=== PATIENT | female | born 1990 | race Caucasian/White ===

== ENCOUNTER → 2021-06-14 | Outpatient (CLI) | payer OTHER | LOC: M LABSMTC 11:01 | PROVIDERS: ATTEND Anesthesiology | DX: Z01.818 Encounter for other preprocedural examination (principal); Z11.52 Encounter for screening for COVID-19 ==

== ENCOUNTER 2021-06-18 09:07 | Day surgery (SDC) | payer OTHER ==
[~2021-06-18] VITALS: Ht 165.1 cm; Wt 105.7 kg
[~2021-06-18 09:07] MED LIST: LR 1,000 ML IV ONE
--- OUTSIDE RECORDS SUMMARY | 2021-06-18 09:10 | CCD ---
Author Author [facility] Organization [facility] Address Unknown Phone Unavailable Care Team Providers Care Channeling Machine Operator Name Role Phone Valenzuela Jessie Gina TOPPER PRESS OPERATOR Unavailable Unavailable Valenzuela, Jessie Gina TOPPER PRESS OPERATOR Unavailable Unavailable Valenzuela, Jessie Gina TOPPER PRESS OPERATOR Unavailable Unavailable Valenzuela, Jessie Gina TOPPER PRESS OPERATOR Unavailable Unavailable Valenzuela, Jessie Gina TOPPER PRESS OPERATOR Unavailable Unavailable Valenzuela, Jessie Gina TOPPER PRESS OPERATOR Unavailable Unavailable Valenzuela, Jessie Gina TOPPER PRESS OPERATOR Unavailable Unavailable Valenzuela, Jessie Gina TOPPER PRESS OPERATOR Unavailable Unavailable Valenzuela, Jessie Gina TOPPER PRESS OPERATOR Unavailable Unavailable Valenzuela, Jessie Gina TOPPER PRESS OPERATOR Unavailable Unavailable Valenzuela, Jessie Gina TOPPER PRESS OPERATOR Unavailable Unavailable Valenzuela, Jessie Gina TOPPER PRESS OPERATOR Unavailable Unavailable Valenzuela, Jessie Gina TOPPER PRESS OPERATOR Unavailable Unavailable Valenzuela, Jessie Gina TOPPER PRESS OPERATOR Unavailable Unavailable Feola, T Shawna PA Unavailable Unavailable Feola, T Shawna PA Unavailable Unavailable Feola, T Shawna PA Unavailable Unavailable Feola, T Shawna PA Unavailable Unavailable Feola, T Shawna PA Unavailable Unavailable Feola, T Shawna PA Unavailable Unavailable Feola, T Shawna PA Unavailable Unavailable Feola, T Shawna PA Unavailable Unavailable Feola, T Shawna PA Unavailable Unavailable Feola, T Shawna PA Unavailable Unavailable Feola, T Shawna PA Unavailable Unavailable Feola, T Shawna PA Unavailable Unavailable Feola, T Shawna PA Unavailable Unavailable Feola, T Shawna PA Unavailable Unavailable Feola, T Shawna PA Unavailable Unavailable Feola, T Shawna PA Unavailable Unavailable Feola, T Shawna PA Unavailable Unavailable Feola, T Shawna PA Unavailable Unavailable Feola, T Shawna PA Unavailable Unavailable Feola, T Shawna PA Unavailable Unavailable Feola, T Shawna PA Unavailable Unavailable Feola, T Shawna PA Unavailable Unavailable Feola, T Shawna PA Unavailable Unavailable Feola, T Shawna PA Unavailable Unavailable Feola, T Shawna PA Unavailable Unavailable Feola, T Shawna PA Unavailable Unavailable Feola, T Shawna PA Unavailable Unavailable Feola, T Shawna PA Unavailable Unavailable Feola, T Shawna PA Unavailable Unavailable Feola, T Shawna PA Unavailable Unavailable Feola, T Shawna PA Unavailable Unavailable Feola, T Shawna PA Unavailable Unavailable Feola, T Shawna PA Unavailable Unavailable Feola, T Shawna PA Unavailable Unavailable Feola, T Shawna PA Unavailable Unavailable Feola, T Shawna PA Unavailable Unavailable Feola, T Shawna PA Unavailable Unavailable Feola, T Shawna PA Unavailable Unavailable Feola, T Shawna PA Unavailable Unavailable Feola, T Shawna PA Unavailable Unavailable Feola, T Shawna PA Unavailable Unavailable Green DUMP TRUCK DRIVER DUMP TRUCK DRIVER, Meredith Unavailable Unavailable Green DUMP TRUCK DRIVER DUMP TRUCK DRIVER, Meredith Unavailable Unavailable Green DUMP TRUCK DRIVER DUMP TRUCK DRIVER, Meredith Unavailable Unavailable Green DUMP TRUCK DRIVER DUMP TRUCK DRIVER, Meredith Unavailable Unavailable Green DUMP TRUCK DRIVER DUMP TRUCK DRIVER, Meredith Unavailable Unavailable Re-disclosure Warning The records that you are about to access may contain information from federally-assisted alcohol or drug abuse programs. If such information is present, then the following federally mandated warning applies: This information has been disclosed to you from records protected by federal confidentiality rules (42 CFR part 2). The federal rules prohibit you from making any further disclosure of this information unless further disclosure is expressly permitted by the written consent of the person to whom it pertains or as otherwise permitted by 42 CFR part 2. A general authorization for the release of medical or other information is NOT sufficient for this purpose. The Federal rules restrict any use of the information to criminally investigate or prosecute any alcohol or drug abuse patient.The records that you are about to access may contain highly sensitive health information, the redisclosure of which is protected by Article 27-F of the [facility] Public Health law. If you continue you may have access to information: Regarding HIV / AIDS; Provided by facilities licensed or operated by the [facility] Office of Mental Health; or Provided by the [facility] Office for People With Developmental Disabilities. If such information is present, then the following [facility] mandated warning applies: This information has been disclosed to you from confidential records which are protected by state law. State law prohibits you from making any further disclosure of this information without the specific written consent of the person to whom it pertains, or as otherwise permitted by law. Any unauthorized further disclosure in violation of state law may result in a fine or senior living sentence or both. A general authorization for the release of medical or other information is NOT sufficient authorization for further disc losure. Family History Family Member Name Family Member Gender Family Member Status Date o f Status Description Data Source(s) Unknown Male Diagnosis 09/02/2019 12:00:00 AM EST [facility] ([facility]) Encounters Encounter Providers Location Date Indications Data Source(s ) Unknown [address] [facility] [address] 05/28/2021 12:00:00 AM EDT eCW1 ([facility]) [place] [address] [facility] [facility] [place] [address] 05/18/2021 12:00:00 AM EDT eCW1 ([facility]) OFFICE VISIT, ESTOutpatient Attender: Meredith Ortiz NP DUMP TRUCK DRIVER [facility] 01/20/2021 02:00:00 PM EDT - 01/20/2021 02:00:00 PM EDT Encntr screen for infections w sexl mode of transmissOther sex counselingHuman immunodeficiency virus [HIV] counselingEncounter for surveillance of vagnl ringEncounter for initial prescription of injectable contracepEncounter for oth general cnsl and advice on contraceptionEncounter for test, result negative [facility] ([facility]) Encntr screen for infections w sexl mode of transmiss Other sex counseling Human immunodeficiency virus [HIV] couns eling Encounter for surveillance of vagnl ring Encounter for initial prescription of in jectable contracep Encounter for oth general cnsl and advic e on contraception Encounter for test, result neg ative Outpatient Attender: Shawna CAMPBELL 021 05:17:29 PM EDT - 12/03/2020 05:56:49 PM EDT DocuTap ([facility] ) OutpatientOFFICE VISIT, EST Attender: Meredith Ortiz DUMP TRUCK DRIVER DUMP TRUCK DRIVER [facility] 10/15/2020 12:00:00 PM EST - 10/15/2020 12:00:00 PM EST Other sex counselingHuman immunodeficiency virus [HIV] counselingEncounter for initial prescription of vagnl ringEncounter for oth general cnsl and advice on contraception [facility] ([facility]) Other sex counseling Human immunodeficiency virus [HIV] couns eling Encounter for initial prescription of va gnl ring Encounter for oth general cnsl and advic e on contraception Attender: Gina Valenzuela TOPPER PRESS OPERATOR [facility] 05/27/2020 03:50:00 PM EDT - 05/27/2020 03:50:00 PM EDT Encounter for surveillance of injectable contraceptive [facility] ([facility]) Encounter for surveillance of injectable contraceptive Medications Medication Brand Name Start Date Product Form Dose Route Admi nistrative Instructions Pharmacy Instructions Status Indications Reaction Description Data Source(s) medroxyprogesterone acetate 150 MG/ML In jectable Suspension medroxyprogesterone 150 mg/mL intramuscular suspension medroxyprogesterone 150 mg/mL intramuscu lar suspension 01/20/2021 12:00:00 AM EDT active IM every 10-13 weeks [facility] ([facility]) 21 DAY Ethinyl Estradiol 0.465187 MG/HR / Etonogestrel 0.005 MG/HR Vaginal Ring [NuvaRing] NuvaRing 0.12 mg-0.015 mg/24 hr vaginal NuvaRing 0.12 mg-0.015 mg/24 hr vaginal 10/15/2020 12:00:00 AM EST active 21 DAY ethinyl estradiol 0.681348 MG/HR / etonogestrel 0.005 MG/HR Vaginal System [NuvaRing] NextGen ([facility]) medroxyprogesterone acetate 150 MG/ML In jectable Suspension medroxyprogesterone 150 mg/mL intramuscular suspension medroxyprogesterone 150 mg/mL intramuscu lar suspension 12/25/2019 12:00:00 AM EDT complet ed IM every 10-13 weeks Next[facility] ([facility]) Insurance Providers Payer name Policy type / Coverage type Policy ID Covered democrat ID Covered democrat's relationship to dhillon Policy Dhillon Plan Information [facility] [id number] [id number] self [phone] [facility] [phone] [id number] self [id number] [facility] Commercial [employer] [id number] Self [id number] [facility] [id number] SP [id number] [facility] [id number] SP [id number] ANSI-Medicaid [id number] PENDING SALE TO [facility] [id number] SP [id number] Problems, Conditions, and Diagnoses No Information Surgeries/Procedures Procedure Description Date Indications Data Source(s) NURSE ONLY INJ. RN/BIOMEDICAL ENGINEERING PROFESSOR Only 01/20/2021 1 2:00:00 AM EDT - 01/20/2021 12:00:00 AM EDT [facility] ([facility]) Depo/Medroxyprogesterone Inj. 150 Mg Nurse/CA 01/20/2021 12:00:00 AM EDT - 01/20/2021 12:00:00 AM EDT [facility] ([facility]) CVR Actuary Clerk.Svc. STI / H 01/20/2021 12:00:00 AM EDT - 01/20/2021 12:00:00 AM EDT [facility] ([facility]) CVR Actuary Clerk.Svc. Contraceptive 01/20/2021 12 :00:00 AM EDT - 01/20/2021 12:00:00 AM EDT [facility] ([facility]) CVR Med.Svc. Height/Weight 01/20/2021 12 :00:00 AM EDT - 01/20/2021 12:00:00 AM EDT [facility] ([facility]) CVR Blood Pressure 01/20/2021 12:00:00 AM EDT - 2020 12:00:00 AM EDT [facility] ([facility]) N.GONORRHOEAE, Pharyngeal 01/20/2021 12: 00:00 AM EDT - 01/20/2021 12:00:00 AM EDT [facility] ([facility]) CHYLMD TRACH, Pharyngeal 01/20/2021 12:0 0:00 AM EDT - 01/20/2021 12:00:00 AM EDT [facility] ([facility]) HCS Without Test 01/20/2021 12:00:00 AM EDT - 01/21/20 21 12:00:00 AM EDT [facility] ([facility]) N.GONORRHOEAE, URINE 01/20/2021 12:00:00 AM EDT - 01/20/2021 12:00:00 AM EDT [facility] ([facility]) CHYLMD TRACH, URINE 01/20/2021 12:00:00 AM EDT - 01/20 12:00:00 AM EDT [facility] ([facility]) OFFICE VISIT, EST 01/20/2021 12:00:00 AM EDT - 021 12:00:00 AM EDT [facility] ([facility]) URINE TEST 01/20/2021 12:00:00 AM EDT - 01/20/2021 12:00:00 AM EDT [facility] ([facility]) CVR Actuary Clerk.Svc. STI / H 10/15/2020 12:00:00 AM EST - 10/15/2020 12:00:00 AM EST [facility] ([facility]) CVR Actuary Clerk.Svc. Other 10/15/2020 12:00:00 AM EST - 2020 12:00:00 AM EST [facility] ([facility]) CVR Actuary Clerk.Svc. Contraceptive 10/15/2020 12 :00:00 AM EST - 10/15/2020 12:00:00 AM EST [facility] ([facility]) CVR Med.Svc. Height/Weight 10/15/2020 12 :00:00 AM EST - 10/15/2020 12:00:00 AM EST [facility] ([facility]) CVR Blood Pressure 10/15/2020 12:00:00 AM EST - 2020 12:00:00 AM EST [facility] ([facility]) HCS Without Test 10/15/2020 12:00:00 AM EST - 10/16/19 12:00:00 AM EST [facility] ([facility]) OFFICE VISIT, EST 10/15/2020 12:00:00 AM EST - 021 12:00:00 AM EST [facility] ([facility]) CVR Actuary Clerk.Svc. Other 05/27/2020 12:00:00 AM EDT - 2019 12:00:00 AM EDT [facility] ([facility]) CVR Actuary Clerk.Svc. Nutrition 05/27/2020 12:00: 00 AM EDT - 05/27/2020 12:00:00 AM EDT [facility] ([facility]) CVR Actuary Clerk.Svc. Contraceptive 05/27/2020 12 :00:00 AM EDT - 05/27/2020 12:00:00 AM EDT [facility] ([facility]) CVR Med.Svc. Height/Weight 05/27/2020 12 :00:00 AM EDT - 05/27/2020 12:00:00 AM EDT [facility] ([facility]) CVR Blood Pressure 05/27/2020 12:00:00 AM EDT - 2019 12:00:00 AM EDT [facility] ([facility]) Injection Or Lab Only Visit Est 05/27/20 12:00:00 AM EDT - 05/27/2020 12:00:00 AM EDT [facility] ([facility]) NURSE ONLY DEPO INJ. RN/BIOMEDICAL ENGINEERING PROFESSOR Only 020 12:00:00 AM EDT - 05/27/2020 12:00:00 AM EDT [facility] ([facility]) Depo/Medroxyprogesterone Inj. 150 Mg Nurse/CA 05/27/2020 12:00:00 AM EDT - 05/27/2020 12:00:00 AM EDT [facility] ([facility]) CVR BC Ending Method HORM.INJ. 3 MOS 12:00:00 AM EDT - 05/27/2020 12:00:00 AM EDT [facility] ([facility]) Results ID Date Data Source [id number] 01/20/2021 02:11:10 PM EDT [facility] ([facility]) Name Value Range Interpretation Code Description Data Marla rce(s) Supporting Document(s) NegativeLot: [id number]: 07/06/2022 High Sensitivity Urine Test [facility]) ID Date Data Source [id number] 01/20/2021 12:00:00 AM EDT [facility] ([facility]) Name Value Range Interpretation Code Description Data Marla rce(s) Supporting Document(s) Negative Normal (applies to non-numeric resul ts) Urine CT/GC Combo - GC [facility] ([facility]) : No Performed by: CDD ([id number]) ID Date Data Source [id number] 01/20/2021 12:00:00 AM EDT [facility] ([facility]) Name Value Range Interpretation Code Description Data Marla rce(s) Supporting Document(s) Negative Normal (applies to non-numeric resul ts) Urine CT/GC Combo - CT [facility] ([facility]) ID Date Data Source [id number] 12/05/2020 08:20:00 PM EDT [facility] Name Value Range Interpretation Code Description Data Marla rce(s) Supporting Document(s) COVID-19 RT-PCR NASAL SWAB Not Detected Not Detected [facility] A not detected (negative) test result fo r this test means that SARS-CoV-2 RNA was not present in the specimen above the limit ofdetection. Laboratory test results should always be considered in thecontext of clinical observations and epidemiological data in making afinal diagnosis and patient management decisions. Results will bereported to government agencies as required.This test has received Emergency Use Authorization (EUA). We will continue to follow federal and state requirements for COVID-19 reporting. This test has been authorized only for the detection of RNAfrom SARS-CoV-2 virus and diagnosis of SARS-CoV-2 virus infection, notfor any other viruses or pathogens. This test is only authorized for the duration of the declaration that circumstances exist justifying the authorization of the emergency use of in vitro diagnostic tests for detection of SARS-CoV-2 virus and/or diagnosis of SARS-CoV-2 virusinfection under section 564(b)(1) of the Act, 21 U.S.C. section 360bbb-3(b)(1), unless the authorization is terminated or revoked sooner. We will continue to follow federal and state requirements for both notification of results and any confirmatory testing that is required by another agency. This test was developed and its performance characteristics determined by [employer] and verified at [employer]. It has not been cleared or approved by the U.S. Food and Drug Administration for diagnostic use. This test has been authorized by FDA under an EUA for use by authorized laboratories. Results should be used in conjunction with clinical findings, and should not form the sole basis for a diagnosis or treatment decision. Methods: SARS-CoV-2 Multiplex RT-PCR Assay ID Date Data Source [id number] 12/03/2020 05:30:00 PM EDT [facility] Name Value Range Interpretation Code Description Data Marla rce(s) Supporting Document(s) SARS-CoV-2 (COVID-19) N gene [Presence] in Respiratory specimen by MELLISSA with probe detection NEGATIVE [facility] This lab was ordered by Jamar Cueva and reported by [employer]. ID Date Data Source [id number] 12/03/2020 12:00:00 AM EDT [facility] Name Value Range Interpretation Code Description Data Marla rce(s) Supporting Document(s) Carestart Rapid COVID Antigen Test Negative [facility] This lab was reported by Jamar [facility]. Procedure Social History Code Duration Value Status Description Data Source(s ) Smoking 05/18/2021 12:00:00 AM EDT Former Smoker completed Former Smoker eCW1 ([facility]) Smoking 05/18/2021 12:00:00 AM EDT Former Smoker completed Former Smoker eCW1 ([facility]) 01/20/2021 12:00:00 AM EDT Cigarette smoker completed Cig arette smoker [facility] ([facility]) Smoking 01/20/2021 12:00:00 AM EDT Current every day smoker co mpleted Current every day smoker [facility] Vital Signs ID Date Data Source UNK Name Value Range Interpretation Code Description Data Source(s) Body weight 230.4 [lb_av] 230.4 [lb_av] [facility]CW1 ([facility]) Body height 65 [in_i] 65 [in_i] [facility] ([facility]) Body mass index (BMI) [Ratio] 38.34 kg/m2 38.34 kg/m2 eCW1 ([facility]) Systolic blood pressure 128 mm[Hg] 128 mm[Hg] e CW1 ([facility]) Diastolic blood pressure 80 mm[Hg] 80 mm[Hg] eCW1 ([facility]) Body height 165.10 cm 165.10 cm [facility] ([facility]) Body weight 97.069 kg 97.069 kg [facility] ([facility]) Systolic blood pressure 126 mm[Hg] 126 mm[Hg] N [facility]Gen ([facility]) Diastolic blood pressure 82 mm[Hg] 82 mm[Hg] [facility] ([facility]) Body mass index (BMI) [Ratio] 35.61 kg/m2 Overweight 35.61 kg/m2 Next[facility] ([facility]) Systolic blood pressure 123 mm[Hg] 123 mm[Hg] N extGen ([facility]) Diastolic blood pressure 80 mm[Hg] 80 mm[Hg] [facility] ([facility]) Body height 165.10 cm 165.10 cm [facility] ([facility]) Body weight 98.430 kg 98.430 kg [facility] ([facility]) Body mass index (BMI) [Ratio] 36.11 kg/m2 Overweight 36.11 kg/m2 Next[facility] ([facility]) Body height 165.10 cm 165.10 cm [facility] ([facility]) Body weight 96.162 kg 96.162 kg [facility] ([facility]) Systolic blood pressure 124 mm[Hg] 124 mm[Hg] N extGen ([facility]) Diastolic blood pressure 80 mm[Hg] 80 mm[Hg] [facility] ([facility]) Body mass index (BMI) [Ratio] 35.28 kg/m2 Overweight 35.28 kg/m2 [facility] ([facility]) Patient Treatment Plan of Care Planned Activity Planned Date Details Description Data Source (s) medroxyprogesterone acetate 150 MG/ML Injectable Suspe nsion 01/20/2021 12:00:00 AM EDT [facility] 21 DAY Ethinyl Estradiol 0.708002 MG/HR / Etonogestrel 0.005 MG/HR Vaginal Ring [NuvaRing] 10/15/2020 12:00:00 AM EST [facility] ([facility]) medroxyprogesterone acetate 150 MG/ML Injectable Suspe nsion 12/25/2019 12:00:00 AM EDT [facility] ([facility])
--- OUTSIDE RECORDS SUMMARY | 2021-06-18 09:10 | CCD ---
Author Author [facility] Organization [facility] Address Unknown Phone Unavailable Care Team Providers Care Payment Poster Name Role Phone Doyle Kiran Unavailable PROBLEMS No Information ALLERGIES No Known Allergies ENCOUNTERS from 1989 to 2021-05-31 Encounter Location Date Provider Diagnosis [facility] [address] [place] [address] [place] [address] May, Doyle Kiran Encounter for annual routine gynecological examination Z01.419 IMMUNIZATIONS No Information SOCIAL HISTORY Tobacco Use: Social History Observation Description Date Details (start date - stop date) Former Smoker Sex Assigned At : Social History Observation Description Sex Assigned At Unknown Language: Question Answer Notes Languages spoken: Polish Alcohol Screening: Question Answer Notes Did you have a drink containing alcohol in the past year? Ye s Points 2 Interpretation Negative How often did you have six or more drinks on one occas ion in the past year? Never (0 points) How many drinks did you have on a typica l day when you were drinking in the past year? 1 or 2 (0 points) How often did you have a drink containing alcohol in t he past year? Two to four times a month (2 points) Tobacco Use: Question Answer Notes Are you a: former smoker Smoking Cessation Information Given 05/18/2021 How long has it been since you last smoked? 3-6 months REASON FOR REFERRAL No Information VITAL SIGNS Weight 230.4 lbs May, Height 65 in May, BMI 38.34 kg/m2 May, Blood pressure systolic 128 mm Hg May, Blood pressure diastolic 80 mm Hg May, MEDICATIONS Medication SIG (Take, Route, Frequency, Duration) Notes Start Da te End Date Status Depo-Provera 400 MG/ML as directed Intramuscular Not-Taking PROCEDURES No Information RESULTS No Results REASON FOR VISIT LOOKING TO GET ESTABLISHED AND DISUSS TBL MEDICAL (GENERAL) HISTORY Type Description Date Surgical History wisdom teeth Surgical History tubes in ears as child Surgical History right breast cyst removed Hospitalization History Childbirth Goals Section No Information Health Concerns No Information MEDICAL EQUIPMENT No Information MENTAL STATUS No Information FUNCTIONAL STATUS No Information ASSESSMENTS Encounter Date Diagnosis Assessment Notes Treatment Notes Treatm ent Clinical Notes May, Encounter for annual routine gynecological examination (ICD-10 - Z01.419) PLAN OF TREATMENT Treatment Notes Test Name Order Date PAP REQUEST FOR SERVICE 2021-05-18 Next Appt Details Provider Name:Doyle Kiran, 2021-07-14 09:00:00 AM, [address], , [place], [address], Insurance Providers Payer Name Payer Address Payer Phone Insured Name Patient Relati onship to Insured Coverage Start Date Coverage End Date [facility] [address] [address] [facility] [id number] [place] LOMBARDI self
--- OUTSIDE RECORDS SUMMARY | 2021-06-18 09:10 | CCD ---
Author Author [facility] [facility] Organization [facility] [facility] Address Unknown Phone Unavailable Care Team Providers Care Hospitality Job Titles Name Role Phone Doyle Kiran Unavailable PROBLEMS No Information ALLERGIES No Known Allergies ENCOUNTERS from 1990 to 2021-05-28 Encounter Location Date Provider Diagnosis [facility] [address] [place] [address] [place] [address] May, Doyle Kiran IMMUNIZATIONS No Information SOCIAL HISTORY Tobacco Use: Social History Observation Description Date Details (start date - stop date) Former Smoker Sex Assigned At : Social History Observation Description Sex Assigned At Unknown Language: Question Answer Notes Languages spoken: Romanian Alcohol Screening: Question Answer Notes Did you [...] REASON FOR REFERRAL No Information VITAL SIGNS No information MEDICATIONS Medication SIG (Take, Route, Frequency, Duration) Notes Start Da te End Date Status Depo-Provera 400 MG/ML as directed Intramuscular Not-Taking PROCEDURES No Information RESULTS No Results REASON FOR VISIT 06/18/21 SURG AUTH MEDICAL (GENERAL) HISTORY Type Description Date Surgical History wisdom teeth Surgical History tubes in ears as child Surgical History right breast cyst removed Hospitalization History Childbirth Goals Section No Information Health Concerns No Information MEDICAL EQUIPMENT No Information MENTAL STATUS No Information FUNCTIONAL STATUS No Information ASSESSMENTS No Information PLAN OF TREATMENT Next Appt Details Provider Name:Doyle Kiran, 2021-07-14 09:00:00 AM, [address] [facility], , [place], [address], Insurance Providers Payer Name Payer Address Payer Phone Insured Name Patient Relati onship to Insured Coverage Start Date Coverage End Date [facility] [address] [address] [facility] [phone] TORSTEN LOMBARDI self
[2021-06-18 09:41] LABS: HEMATOCRIT 40.2 % (36.0-47.0); HEMOGLOBIN 13.8 g/dl (12.0-15.5); MEAN CORPUSCULAR HEMOGLOBIN 30.3 pg (27.0-33.0); MEAN CORPUSCULAR HGB CONC 34.3 g/dl (32.0-36.5); MEAN CORPUSCULAR VOLUME 88.4 fl (80.0-96.0); PLATELET COUNT, AUTOMATED 212 10^3/uL (150-450); RED BLOOD COUNT 4.55 10^6/uL (4.00-5.40); WHITE BLOOD COUNT 6.6 10^3/uL (4.0-10.0)
[2021-06-18] MEDS ORDERED: BUPIVACAINE HCL 0.25% 10ML VIAL As Ordered ONE (10:06)
--- NOTE | 2021-06-18 10:18 | ROOPDOC ---
[facility] Report Of Operation Report of Operation DATE OF PROCEDURE: 06/18/21 PREPROCEDURE DIAGNOSES: Undesired fertility. POSTPROCEDURE DIAGNOSES: Same. PROCEDURE PERFORMED: Laparoscopic left salpingectomy, right salpingo- oophorectomy. SURGEON: Janeth Perry MD ANESTHESIA: GETA. ESTIMATED BLOOD LOSS: Approximately 20 mL. COMPLICATIONS: none. FINDINGS: Normal uterus, left ovary and fallopian tube. Right fallopian tube densely adherent to IP ligament and right ovary. Right ovary multicystic. Normal upper abdomen. SPECIMENS REMOVED: Bilateral fallopian tubes, right ovary PROCEDURE NOTE: The patient was taken to the operating room where general endotracheal anesthesia was induced. She was prepped and draped in a sterile fashion in the dorsal lithotomy position. A sponge stick was placed in the vagina to use as a manipulator. A periumbilical incision was made with a scalpel. A Veress needle was placed through this incision while tenting up on the skin of the abdomen. An intra-abdominal location the Veress needle was assessed with the use of a saline filled syringe. A pneumoperitoneum was created. The Veress needle was removed. A 5 mm trocar using [employer] was inserted through this incision. A 5 and 8 mm suprapubic port were placed under direct visualization. A grasping instrument was used to elevate each fallopian tube. A LigaSure device was used to coagulate and incise broad ligament attachments to the fallopian tube. Both tubes were excised near their origin. Both tubes were removed through the suprapubic port. After dissection of the right fallopian tube there was noted to be bleeding from the hilum of the right IP ligament. Coagulation was attempted. Bleeding was persistent in a slow fashion. It was deemed safer to remove the right ovary than to leave the ovary risk further bleeding. Right IP ligament was coagulated and incised. The utero- ovarian ligament on the right was coagulated incised. The right ovary was placed in Endo Catch bag and removed through the umbilical port. The pneumoperitoneum was released. All instruments were removed. The skin was closed with 4-0 Monocryl subcuticular sutures. Sponge instrument and needle counts were correct. The patient went to the recovery room in stable condition. JANETH PERRY MD Jun 18, 2021 10:18
[2021-06-18] MEDS ORDERED: IBUP-1022 PO (11:20)
[2021-06-18] MEDS ORDERED: OXYC1TAB23 PO (11:21)
[2021-06-18] MEDS ORDERED: KETOROLAC 60MG 2ML VIAL As Ordered ONE (11:49)
[2021-06-18] MEDS ORDERED: ROCURONIUM BROMIDE 50 MG/5 ML VIAL As Ordered ONE (11:49)
[2021-06-18] MEDS ORDERED: propofoL 200 MG/20 ML VIAL As Ordered ONE (11:49)
[2021-06-18] MEDS ORDERED: dexameTHASONE 4 MG/ML 1ML VIAL (J1100 PER 1MG) As Ordered ONE (11:49)
[2021-06-18] MEDS ORDERED: SUGAMMADEX SODIUM 500 MG/5 ML VIAL (BRIDION) As Ordered ONE (11:49)
[2021-06-18] MEDS ORDERED: MIDAZOLAM INJ 2MG/2ML VIAL (J2250 PER 1MG) As Ordered ONE (11:49)
[2021-06-18] MEDS ORDERED: LIDOCAINE 2% 100MG/5ML SDV (FOR ANES.) As Ordered ONE (11:49)
[2021-06-18] MEDS ORDERED: ONDANSETRON 4MG/2ML VIAL As Ordered ONE (11:49)
[2021-06-18] MEDS ORDERED: HYDROmorphone HCL 2 MG/ML 1ML VIAL As Ordered ONE (11:49)
[2021-06-18] MEDS ORDERED: fentaNYL 100 MCG/2 ML INJECTION (J3010) As Ordered ONE (11:49)
[2021-06-18] MEDS ORDERED: ACETAMINOPHEN 1000MG 100ML IV BTL (OFIRMEV) (J0131 PER 10MG) As Ordered ONE (11:56)
[2021-06-18] MEDS ORDERED: HYDROMORPHONE HCL 0.5 MG/ 0.5 ML SYRINGE (J1170 PER 1) IV PRN (12:40)
[2021-06-18] MEDS ORDERED: METOCLOPRAMIDE INJ 10MG/2ML VIAL (J2765 PER 1) IV PRN (12:40)
[2021-06-18] MEDS ORDERED: oxyCODONE 5MG TAB PO PRN (12:40)
[2021-06-18] MEDS ORDERED: LR 1,000 ML IV SCH ×2 (12:40)
[2021-06-18] MEDS ORDERED: fentaNYL 100 MCG/2 ML INJECTION (J3010) IV PRN (12:40)
[2021-06-18] MEDS ORDERED: ONDANSETRON 4MG/2ML VIAL IV PRN (12:40)
[2021-06-18] MEDS ORDERED: PERCOCET 5MG/325MG TAB PO PRN (12:45)
[2021-06-18 14:15] VITALS: BP 130/82
== END 2021-06-18 14:25 | disposition home or self-care (01) ==
LOC: M SDC 09:07
PROVIDERS: ATTEND Specialist
DX: Z30.2 Encounter for sterilization (principal); Z87.891 Personal history of nicotine dependence; N83.201 Unspecified ovarian cyst, right side
CPT/HCPCS: 36415; 58661; 81025; 85027; 88305; J0131; J1100; J1170; J1885; J2250; J2405; J2765; J3010

== ENCOUNTER → 2022-11-14 | Outpatient (CLI) | payer OTHER ==
[~2022-11-14] MED LIST changes: +IBUP-1022 PO; -LR 1,000 ML IV ONE; +OXYC1TAB23 PO
[2022-11-14 10:26] LABS: HEMATOCRIT 41.3 % (36.0-47.0); MEAN CORPUSCULAR HEMOGLOBIN 30.7 pg (27.0-33.0); MEAN CORPUSCULAR HGB CONC 33.9 g/dl (32.0-36.5); MEAN CORPUSCULAR VOLUME 90.6 fl (80.0-96.0); PLATELET COUNT, AUTOMATED 235 10^3/uL (150-450); RED BLOOD COUNT 4.56 10^6/uL (4.00-5.40); WHITE BLOOD COUNT 6.9 10^3/uL (4.0-10.0)
[2022-11-14 10:34] LABS: HEMOGLOBIN A1c 4.9 % (4.0-6.0)
[2022-11-14 10:52] LABS: ALBUMIN 3.8 G/DL (3.2-5.2); ALKALINE PHOSPHATASE 55 U/L (46-116); ALT/SGPT 20 U/L (7.0-40); AST/SGOT 10 U/L (<34); BILIRUBIN,TOTAL 0.9 MG/DL (0.3-1.2); BLOOD UREA NITROGEN 12 MG/DL (9-23); CALCIUM LEVEL 8.6 MG/DL (8.5-10.1); CARBON DIOXIDE LEVEL 28 MMOL/L (20-31); CHLORIDE LEVEL 109 MMOL/L (98-107); CHOLESTEROL LEVEL 153 MG/DL (<200); CHOLESTEROL RISK RATIO 3.02 (<5); CREATININE FOR GFR 0.69 MG/DL (0.55-1.30); GLOMERULAR FILTRATION RATE > 60.0 (>60); GLUCOSE, FASTING 93 MG/DL (60-100); HDL CHOLESTEROL 50.5 MG/DL (>40); IRON (FE) 107 UG/DL (50-170); LDL CHOLESTEROL 87.1 MG/DL (<100); NON-HDL-C 102.5 MG/DL; PERCENT SATURATION 36.5 % (13.2-45.0); POTASSIUM SERUM 4.3 MMOL/L (3.5-5.1); SODIUM LEVEL 140 MMOL/L (136-145); TOTAL IRON BINDING CAPACITY 293 UG/DL (250-425); TOTAL PROTEIN 6.5 G/DL (5.7-8.2); TRIGLYCERIDES LEVEL 77 MG/DL (<150)
[2022-11-14 10:54] LABS: THYROID STIMULATING HORMONE 1.492 uIU/ML (0.55-4.78); TOTAL 25(OH) VITAMIN D 31.2 NG/ML (20.0-100.0)
== END ==
LOC: M LAB 09:48
PROVIDERS: ATTEND Family Medicine
DX: R53.83 Other fatigue (principal); I10 Essential (primary) hypertension

== ENCOUNTER → 2023-03-17 | Outpatient (CLI) | payer OTHER ==
[2023-03-17 09:36] LABS: HEMOGLOBIN 13.6 g/dl (12.0-15.5); MEAN CORPUSCULAR HEMOGLOBIN 30.6 pg (27.0-33.0); MEAN CORPUSCULAR HGB CONC 33.2 g/dl (32.0-36.5); MEAN CORPUSCULAR VOLUME 92.1 fl (80.0-96.0); PLATELET COUNT, AUTOMATED 225 10^3/uL (150-450); RED BLOOD COUNT 4.45 10^6/uL (4.00-5.40)
[2023-03-17 10:11] LABS: ALBUMIN 3.8 G/DL (3.2-5.2); ALKALINE PHOSPHATASE 55 U/L (46-116); ALT/SGPT 39 U/L (7.0-40); AST/SGOT 15 U/L (<34); BILIRUBIN,TOTAL 0.8 MG/DL (0.3-1.2); BLOOD UREA NITROGEN 18 MG/DL (9-23); CARBON DIOXIDE LEVEL 27 MMOL/L (20-31); CHLORIDE LEVEL 109 MMOL/L (98-107); CHOLESTEROL LEVEL 146 MG/DL (<200); CHOLESTEROL RISK RATIO 3.09 (<5); CREATININE FOR GFR 0.66 MG/DL (0.55-1.30); GLOMERULAR FILTRATION RATE > 60.0 (>60); GLUCOSE, FASTING 94 MG/DL (60-100); HDL CHOLESTEROL 47.1 MG/DL (>40); IRON (FE) 75 UG/DL (50-170); LDL CHOLESTEROL 83.9 MG/DL (<100); NON-HDL-C 98.9 MG/DL; POTASSIUM SERUM 4.5 MMOL/L (3.5-5.1); SODIUM LEVEL 141 MMOL/L (136-145); THYROXINE (T4) 9.3 UG/DL (4.5-10.9); TOTAL IRON BINDING CAPACITY 289 UG/DL (250-425); TOTAL PROTEIN 6.5 G/DL (5.7-8.2); TOTAL T3 116.6 NG/DL (60.0-181.0); TRIGLYCERIDES LEVEL 75 MG/DL (<150)
[2023-03-17 10:12] LABS: FOLLICLE STIMULATING HORMONE 4.1 mIU/ML; THYROID STIMULATING HORMONE 1.398 uIU/ML (0.55-4.78)
[2023-03-17 10:13] LABS: ESTRADIOL 60.9 PG/ML; LUTEINIZING HORMONE 7.2 mIU/ML
[2023-03-17 10:15] LABS: THYROGLOBULIN ANTIBODY < 15.0 U/ML (<60.0)
[2023-03-17 10:16] LABS: THYROID PEROXIDASE ANTIBODY < 28.0 U/ML (<60.0)
== END ==
LOC: M LAB 08:37
PROVIDERS: ATTEND Family Medicine
DX: D64.9 Anemia, unspecified (principal); R53.83 Other fatigue; E03.9 Hypothyroidism, unspecified

== ENCOUNTER → 2023-03-27 | Outpatient (CLI) | payer OTHER | LOC: M WHC 09:26 | PROVIDERS: ATTEND Family Medicine | DX: N83.202 Unspecified ovarian cyst, left side (principal); Z90.79 Acquired absence of other genital organ(s) ==

== ENCOUNTER → 2024-03-25 | Outpatient (CLI) | payer OTHER ==
[2024-03-25 14:18] LABS: BASO % 0.5 % (0.0-1.0); EOS # 0.1 10^3/uL (0.0-0.5); EOS % 1.8 % (0.0-3.0); HEMOGLOBIN 14.4 g/dl (12.0-15.5); LYMPH # 1.8 10^3/uL (1.5-5.0); LYMPH % 23.1 % (24.0-44.0); MEAN CORPUSCULAR HEMOGLOBIN 31.4 pg (27.0-33.0); MEAN CORPUSCULAR HGB CONC 34.3 g/dl (32.0-36.5); MEAN CORPUSCULAR VOLUME 91.5 fl (80.0-96.0); MONO # 0.6 10^3/uL (0.0-0.8); MONO % 8.1 % (2.0-8.0); NEUTROPHILS # 5.2 10^3/uL (1.5-8.5); PLATELET COUNT, AUTOMATED 201 10^3/uL (150-450); RED BLOOD COUNT 4.59 10^6/uL (4.00-5.40); WHITE BLOOD COUNT 7.9 10^3/uL (4.0-10.0)
[2024-03-25 14:41] LABS: ALBUMIN 3.9 G/DL (3.2-5.2); ALKALINE PHOSPHATASE 58 U/L (46-116); ALT/SGPT 12 U/L (7.0-40); AST/SGOT < 8 U/L (<34); BLOOD UREA NITROGEN 12 MG/DL (9-23); CALCIUM LEVEL 9.4 MG/DL (8.5-10.1); CARBON DIOXIDE LEVEL 26 MMOL/L (20-31); CHLORIDE LEVEL 107 MMOL/L (98-107); CREATININE FOR GFR 0.61 MG/DL (0.55-1.30); GLOMERULAR FILTRATION RATE > 60.0 (>60); GLUCOSE, FASTING 75 MG/DL (60-100); POTASSIUM SERUM 4.2 MMOL/L (3.5-5.1); SODIUM LEVEL 139 MMOL/L (136-145); TOTAL PROTEIN 6.8 G/DL (5.7-8.2)
== END ==
LOC: M LAB 13:02
PROVIDERS: ATTEND Physician Assistant
DX: K22.10 Ulcer of esophagus without bleeding (principal)

== ENCOUNTER → 2024-04-16 | Outpatient (REF) | payer OTHER ==
[2024-04-18 15:18] LABS: HPV APTIMA Not Detected (Not Detected)
== END ==
LOC: M SFHCWAGY 15:14
PROVIDERS: ATTEND Specialist
DX: Z12.4 Encounter for screening for malignant neoplasm of cervix (principal); R87.612 Low grade squamous intraepithelial lesion on cytologic smear of cervix (LGSIL); Z77.9 Other contact with and (suspected) exposures hazardous to health
CPT/HCPCS: 87624; G0123

== ENCOUNTER → 2025-07-14 | Outpatient (CLI) | payer OTHER ==
[~2025-07-14] MED LIST changes: -IBUP-1022 PO; +IBUP600T42 PO; +ISOVUE-370 76% 100 ML VIAL ONE
== END ==
LOC: M PLAIMG 13:55
PROVIDERS: ATTEND Family Medicine
DX: R31.9 Hematuria, unspecified (principal)